=== PATIENT | male | born 1950 | race Caucasian/White ===

== ENCOUNTER 2024-02-21 09:39 | Outpatient (AMB) | payer MEDICARE, SELFPAY ==
--- NOTE | 2024-02-21 09:46 | MHC.PC.OV ---
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 Intake Note: establish care Switch Inspector: Present Accompanied by: Allergies pseudoephedrine [From Sudafed] Allergy (Intermediate, Verified 02/21/24 09:48) high b/p Medication List - Last Reconciled 02/21/24 by Mata Miranda MD amitriptyline 25 mg PO BEDTIME atorvastatin mg PO carbidopa-levodopa 25-100 mg tabs PO carbidopa-levodopa 25-100 mg ER tabs PO cholecalciferol (vitamin D3) 125 mcg PO DAILY donepezil 10 mg PO DAILY escitalopram oxalate 20 mg PO DAILY fluticasone propionate 50 mcg/actuation sprays intranasal lisinopril 20 mg PO DAILY mecobalamin (vitamin B12) mcg PO melatonin 10 mg PO BEDTIME PRN metformin ER 500 mg PO DAILY [id number]-ecaocc [id number] mcg (Centrum Silver Men) 1 tab PO DAILY omega-3 fatty acids 1,000 mg PO DAILY Tobacco use date assessed: 02/21/24 Fall risk assessment: 2 + Falls in past year Last assessed Fall Risk: 02/21/24 Dental Screening Did you have a dental visit in the last 12 months?: Yes Did you have a dental problem in the last 6 months where you did not have access to dental care?: Yes Was dental information given to patient?: 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 ?? Prior PCP:?PCP was in [facility]. Dr Bower, Neuro: at [facility] Last office visit/CPE:? Acute issue(s):? ?? PMHx:? Parkinsonism Neuro at [facility]. Also Neuropathy. , HTN, HLD, Retnal separation L eye. Orthostatic hypotension. h/o WPW, Anxiety, Diabetes SurgHx:? WPW ablation. L eye. SocHx:? Smokes 1/2 ppd, etOH 1-2 dr per day. No drug HPI Comments History of Present Illness Details Documentation assistance for Mata Miranda MD, was provided by Jaguar Barry,? Coal [employer] on 02/21/2024 at 11:30 AM EST. I, Dr. Miranda, have read, observed, and verified documentation. [facility] Medical History (Updated 02/21/24 @ 11:30 by Jaguar Barry) Diabetes Depression Separation, retinal, layers Hypotension Parkinson disease Hypertension Surgical History (Updated 02/21/24 @ 09:55 by Bettina Lara [facility]) Cornea replaced by transplant Family History (Updated 02/21/24 @ 09:58 by Bettina Lara CMA) Father Stroke Mother Pulmonary embolism Sister Diabetes Brother No problems noted. Family/Other No problems noted. Other Substance abuse Social History (Updated 02/21/24 @ 10:03 by Bettina Lara [facility]) Housing: Apartment Patient Tobacco Use Status: Current everyday Tobacco user e-Cigarette/Vaping Use: Never Used service: Yes Current occupational status: retired Current occupational exposures/hazards: No Cognitive needs: No Hearing needs: No Vision needs: Yes Questionnaire PHQ-9 Over the last 2 weeks, how often have you been bothered by any of the following problems? 1. Little interest or pleasure in doing things: several days 2. Feeling down, depressed, or hopeless: several days 3. Trouble falling or staying asleep, or sleeping too much: not at all 4. Feeling tired or having little energy: several days 5. Poor appetite or overeating: not at all 6. Feeling bad about yourself - or that you are a failure or have let yourself or your family down: several days 7. Trouble concentrating on things, such as reading the newspaper or watching television: not at all 8. Moving or speaking so slowly that other people could have noticed. Or the opposite - being so fidgety or restless that you have been moving around a lot more than usual: several days 9. Thoughts that you would be better off or of hurting yourself in some way: not at all Total score: 5 Depression Screening Interpretation: Positive Depression Screening Done: Yes 96084 - PHQ-9 Billing: Yes Source: Developed by Drs. Lalo Marie, Savannah Musa, Jose J Wise and colleagues, with an educational myrna from [employer]. Thrive Questionnaire Date Thrive assessed: 02/21/24 I am a: Patient What is your living situation today?: I have a steady place to live Within the past 12 months, did the food you bought not last and you didn't have the money to get more?: Never true Within the past 12 months, did you worry whether your food would run out before you got money to buy more?: Never true Do you have trouble paying for medicines?: No Do you have trouble getting transportation to medical appointments?: No Do you have trouble paying your heating and electricity bill?: No Do you have trouble taking care of your child, family member or friend?: No Do you have trouble with day-to-day activities such as bathing, preparing meals, shopping, managing finances, etc.?: Yes Are you currently unemployed and looking for a job?: No Are you interested in more education?: No Please select the resources that you would like help with: None Currently or been in a relationship where the following occur: No concerns reported THRIVE Score: 0 AUDIT C Alcohol Use Questionnaire (AUDIT-C) 1. How often do you have a drink containing alcohol?: 4 or more times a week 2. How many drinks containing alcohol do you have on a typical day when you are drinking?: 1 or 2 3. How often do you have six or more drinks on one occasion?: Never Total Score: 4 ROSEANNE-7 AMB Questionnaire ROSEANNE-7 Date ROSEANNE - 7 assessed: 02/21/24 Feeling nervous, anxious, or on edge: 2 = More than half the days Not being able to stop or control worryin = More than half the days Worrying too much about different things: 2 = More than half the days Trouble relaxin = Nearly every day Being so restless that it is hard to sit still: 3 = Nearly every day Becoming easily annoyed or irritable: 3 = Nearly every day Feeling afraid as if something awful might happen: 2 = More than half the days Total ROSEANNE-7 score (0-4 normal; 5-9 mild; 10-14 moderate; 15-21 severe): 17 Source: Developed by Drs. Lalo Marie, Savannah Musa, Jose J Wise and colleagues, with an educational myrna from [employer]. ROSEANNE-7 Assessment Billing ROSEANNE-7 Assessment Tool: ROSEANNE-7 Assessment 74675 Review of Systems Const Denies chills, Denies fatigue, Denies fever(s), Denies headache(s) and Reports weakness ENT Denies dizziness and Denies headache(s) Card Denies chest pain, Denies lightheadedness, Denies dyspnea and Denies other (Palpitations) Resp Denies cough, Denies dyspnea, Denies wheezing and Denies other ( shortness of breath) Musc Denies numbness and Denies tingling Neuro Denies dizziness, Denies headache(s), Denies numbness, Denies tingling, Denies paresthesias, Reports tremor(s) and Reports weakness Psych Reports anxiety and Reports depression Endo Denies fatigue Aller/Immun Denies wheezing Physical exam (Primary Care) Vital Signs: Last Vital Signs Temp 98.6 F 02/21/24 10:12 Pulse 73 02/21/24 10:12 Resp 14 02/21/24 10:12 BP 124/60 02/21/24 10:12 Pulse Ox 96 02/21/24 10:12 Oxygen Delivery Method Room Air 02/21/24 10:12 BMI result Body Mass Index 24.7 Tobacco/Smoking Status: Tobacco use Status Tobacco use date assessed 02/21/24 02/21/24 09:58 Patient Tobacco Use Status Current everyday Tobacco 02/21/24 10:03 e-Cigarette/Vaping Use Never Used 02/21/24 10:03 PHQ-9: PHQ-9 Score PHQ-9: Total score 5 02/21/24 10:15 Depression Screening Interpretation: Positive Thrive Assessment: Date of Thrive Assessment Date Thrive assessed 02/21/24 02/21/24 10:15 Currently or been in a relationship where the following occur: No concerns reported Const General: no acute distress and well developed Nutritional Appearance: well nourished Orientation/consciousness: patient oriented x3 HENMT Head: Yes normocephalic and Yes atraumatic Eyes General: appearance normal, both eyes and all related structures Pupils: Equal, round and reactive pupils present EOM: EOMs intact bilaterally Resp Effort & Inspection: normal respiratory effort Auscultation: clear to auscultation bilaterally Cardio Rate: regular rate Rhythm: regular rhythm Heart sounds: S1 normal heart sound present, S2 normal heart sound present, no gallops, no murmurs and no rubs Neuro General: patient oriented x3 and gait normal Cranial nerves: Yes Equal, round and reactive pupils present Psych Affect: normal affect Coding Level of Care Code New Pt Level 4 (30656) Diagnoses Hypertension I10 Diabetes E11.9 Parkinson disease G20.A1 Anxiety with depression F41.8 Lower extremity weakness R29.898 Hyperlipidemia E78.5 Neuropathy G62.9 Laboratory exam ordered as part of routine general medical examination Z00.00 Smoker F17.200 Additional Codes ROSEANNE-7 Assessment Billing - ROSEANNE-7 Assessment Tool: ROSEANNE-7 Assessment 33542 ([id number]) PHQ-9 - 89005 - PHQ-9 Billing: Yes ([id number]) Assessment & Plan Assessment & Plan (1) Hypertension: Code(s): I10 - Essential (primary) hypertension Category: Medical Plan: Patient?was?taking?lisinopril?but?also?has?issues?with?orthostatic?hypotension He?stopped?his?lisinopril?and?blood?pressures?are?all?under?140/90?except?after?a??freezing?episode??parkinsonism. He?can?hold?off?on?taking?lisinopril?and?will?use?a?strategy?of?checking?blood?pressure.??Will?take?1/2?of?a?lisinopril?10?mg?tablet?(5?mg)?up?to?twice?a?day?for?blood?pressures?greater?than?140/90. Will?continue?to?monitor (2) Diabetes: Code(s): E11.9 - Type 2 diabetes mellitus without complications Category: Medical Plan: A1c?6.1%.??Good?control.??Goal?is?less?than?7.0% Continue?current?medications (3) Parkinson disease: Code(s): G20.A1 - Parkinson's disease without dyskinesia, without mention of fluctuations Category: Medical Plan: Patient?is?on?carbidopa?levodopa Also?on?donepezil Continue?current?medication?regimen?and?follow-up?with?your?neurologist?as?recommended Also?has?an?order?from?his?neurologist?for?physical?therapy?and?I?recommended?this?as?well (4) Anxiety with depression: Code(s): F41.8 - Other specified anxiety disorders Category: Medical Plan: He?is?on?escitalopram?and?amitriptyline Continue?current?medications We?discussed?bupropion?which?could?also?help?with?smoking?cessation?in?we?can?readdress?at?a?subsequent?visit (5) Lower extremity weakness: Code(s): R29.898 - Other symptoms and signs involving the musculoskeletal system Category: Medical Plan: Encouraged?using?a?cane?or?walking?stick He?has?an?order?for?physical?therapy?and?will?start?this?as?soon?as?can (6) Hyperlipidemia: Code(s): E78.5 - Hyperlipidemia, unspecified Category: Medical Plan: He?is?on?a?statin?medication Check?lipids (7) Neuropathy: Code(s): G62.9 - Polyneuropathy, unspecified Category: Medical Plan: Patient?has?lower?extremity?neuropathy?secondary?to?diabetes?and?also?parkinsonism Controlled?diabetes Physical?therapy,, use?cane B12 (8) Laboratory exam ordered as part of routine general medical examination: Code(s): Z00.00 - Encounter for general adult medical examination without abnormal findings Category: Medical Plan: Check?labs (9) Smoker: Code(s): F17.200 - Nicotine dependence, unspecified, uncomplicated Category: Social Hx Plan: Advised?cessation Discussed?bupropion?as?above Check?LDCT Orders: Orders TSH reflex Free T4 Today Z00.00 - Encounter for general adult medical examination without abnormal findings UA and rflx microscopic Today Z00.00 - Encounter for general adult medical examination without abnormal findings Vitamin B12 and Folate Today E53.8 - Deficiency of other specified B group vitamins Comprehensive [place]. Panel Fast Today Z00.00 - Encounter for general adult medical examination without abnormal findings Complete Blood Count Auto Diff Today Z00.00 - Encounter for general adult medical examination without abnormal findings Prostate Specific Antigen Scr Today Z12.5 - Encounter for screening for malignant neoplasm of prostate Microalbumin, Random (w Creat) Today I10 - Essential (primary) hypertension Lipid Panel Today Z00.00 - Encounter for general adult medical examination without abnormal findings Vitamin D 25-OH Total Today E55.9 - Vitamin D deficiency, unspecified CT lung screening Today F17.200 - Nicotine dependence, unspecified, uncomplicated
[2024-02-21 10:12] VITALS: BP 124/60; PULSE 73; RESP 14; TEMP 37; O2SAT 96; BMI 24.7
== END 2024-02-21 11:39 | disposition home or self-care (01) ==
PROVIDERS: PCP Family Medicine; Visit Provider Family Medicine
DX: I10 Essential (primary) hypertension (principal); E11.9 Type 2 diabetes mellitus without complications; G20.A1 Parkinson's disease without dyskinesia, without mention of fluctuations; F41.8 Other specified anxiety disorders; R29.898 Other symptoms and signs involving the musculoskeletal system; E78.5 Hyperlipidemia, unspecified; G62.9 Polyneuropathy, unspecified; Z00.00 Encounter for general adult medical examination without abnormal findings; F17.200 Nicotine dependence, unspecified, uncomplicated

== ENCOUNTER 2024-02-21 11:47 | Outpatient (REF) | payer MEDICARE, SELFPAY ==
[2024-02-21 14:03] LABS: MANUAL DIFF FLAG NO
[2024-02-21 14:10] LABS: Basophils Percent Auto 0.5 % (0-2); Eosinophils Absolute Auto 0.2 X10*3/uL (0.0-0.4); Eosinophils Percent Auto 2.9 % (0-4); Hematocrit 33.5 % (42.0-52.0); Hemoglobin 11.6 g/dl (14.0-18.0); Imm Gran Abs Auto 0.02 X10*3/uL (0.00-0.03); Imm Gran Pct Auto 0.3 % (0.0-0.4); Lymphocytes Absolute Auto 1.8 X10*3/uL (1.2-4.9); Lymphocytes Percent Auto 31.1 % (20-40); Mean Corpuscular HGB Conc 34.6 g/dl (31.0-36.0); Mean Corpuscular Hemoglobin 32.7 pg (27.0-33.0); Mean Corpuscular Volume 94.4 fL (80.0-98.0); Mean Platelet Volume 9.8 fL (9.4-12.4); Monocytes Absolute Auto 0.4 X10*3/uL (0.1-1.2); Monocytes Percent Auto 6.5 % (2-11); Neutrophils Absolute Auto 3.4 x10*3/uL (2.0-8.3); Neutrophils Percent Auto 58.7 % (45-73); Platelet Count 192 X10*3/uL (160-400); Red Blood Count 3.55 X10*6/uL (4.60-5.80); Red Cell Distribution Width 12.9 % (11.0-16.0); White Blood Count 5.8 X10*3/uL (4.8-10.8)
[2024-02-21 14:15] LABS: Appearance Urine Clear; Color Urine Yellow; Glucose Urine UA Negative (Negative); Leukocyte Esterase Urine Negative (Negative); Nitrite Urine Negative (Negative); PH 5.5 (5.0-9.0); Urine Blood Negative (Negative); Urine Ketones Trace mg/dL (Negative); Urine Protein Trace mg/dL (Neg-Trace)
[2024-02-21 14:28] LABS: Alanine Aminotransferase 23 U/L (0-40); Albumin Level 4.7 g/dL (3.5-5.0); Alkaline Phosphatase 114 U/L (39-117); Anion Gap 15 (12-20); Aspartate Amino Transferase 81 U/L (5-37); Bilirubin Total 0.5 mg/dL (0.0-1.0); Blood Urea Nitrogen 18 mg/dL (9-16); Calcium 9.1 mg/dL (8.4-10.2); Carbon Dioxide 25 mmol/L (22-29); Chloride 103 mmol/L (96-108); Cholesterol 187 mg/dL (<200); Estimated Glomerular Filt Rate 59; Glucose Fasting 101 mg/dL (60-99); HDL Cholesterol 66 mg/dL (>40); LDL Cholesterol Calculated 96 mg/dL (<100); Sodium 138 mmol/L (135-145); Total Protein 8.1 g/dL (6.5-8.0); Triglycerides 129 mg/dL (<150)
[2024-02-21 14:33] LABS: Creatinine Urine 68.94 mg/dL; Microalbum/Creatinine Ratio Ur 147.9 ug/mg cr (<30)
[2024-02-21 14:44] LABS: TSH reflex Free T4 2.27 uIU/mL (0.32-4.0); Vitamin D 25-OH Total 96.6 ng/mL (>30)
[2024-02-21 14:56] LABS: Folate 14.3 ng/mL (> or = 4.0); Prostate Specific Antigen Scr 0.85 ng/mL (<0.05-4.0); Vitamin B12 > 2000 pg/mL (200-900)
== END 2024-02-21 11:48 | disposition home or self-care (01) ==
LOC: HO.WFDLDS 11:47
PROVIDERS: Visit Provider Family Medicine
DX: Z00.00 Encounter for general adult medical examination without abnormal findings (principal); Z12.5 Encounter for screening for malignant neoplasm of prostate; E53.8 Deficiency of other specified B group vitamins; I10 Essential (primary) hypertension; E55.9 Vitamin D deficiency, unspecified
CPT/HCPCS: 36415; 80053; 80061; 81003; 82043; 82306; 82570; 82607; 82746; 84153; 84443; 85025; 96127; 99202

== ENCOUNTER 2024-02-27 15:45 | Outpatient (AMB) | payer MEDICARE, SELFPAY ==
--- NOTE | 2024-02-27 16:34 | A.OFFPC_ITS ---
Vital Signs 02/27/24 16:40 Height 5 ft 8 in Weight 164 lb 2 oz BMI 25.0 BP 130/60 Blood Pressure Location Lt brachial Position Sitting Respiration 16 Pulse 69 Pulse Source Pulse Oximeter Temp 98.6 F Temp Source Oral Pulse Oximetry (%) 98 Oxygen Delivery Method Room Air Intake Visit Reasons: PE Intake Note: PE Allergies pseudoephedrine [From Sudafed] Allergy (Intermediate, Verified 02/27/24 16:34) high b/p Tobacco use date assessed: 02/27/24 Fall risk assessment: 2 + Falls in past year Last assessed Fall Risk: 02/27/24 Dental Screening Dental Screen Date: 02/27/24 Did you have a dental visit in the last 12 months?: Yes Did you have a dental problem in the last 6 months where you did not have access to dental care?: No Was dental information given to patient?: Patient has dentist HPI PE HPI Details 73 y/o male presents for an extended exa m with f/u labs and health maintenance. Labs drawn 02/21/24. Reviewed labs with pt. Mild anemia. Elevated AST of 81. Notes minimal EtOH use. Tries to stay away from tylenol. Triglycerides 129. TC 187. LDL 96. HDL 66. Fasting glucose of 101. Microalb/Creat ratio 147.9. Last A1c 6.1%. Blood pressure today 130/60, 69p. Prescribed lisinopril 20mg daily. [facility] Medical History (Updated 02/27/24 @ 17:25 by Jaguar Barry) Diabetes Depression Separation, retinal, layers Hypotension Parkinson disease Hypertension Surgical History (Updated 02/21/24 @ 09:55 by Bettina Lara CMA) Cornea replaced by transplant Family History (Updated 02/21/24 @ 09:58 by Bettina Lara CMA) Father Stroke Mother Pulmonary embolism Sister Diabetes Brother No problems noted. Family/Other No problems noted. Other Substance abuse Social History (Updated 02/21/24 @ 10:03 by Bettina Lara CMA) Housing: Apartment Patient Tobacco Use Status: Current everyday Tobacco user e-Cigarette/Vaping Use: Never Used service: Yes Current occupational status: retired Current occupational exposures/hazards: No Cognitive needs: No Hearing needs: No Vision needs: Yes Questionnaire PHQ-9 Over the last 2 weeks, how often have you been bothered by any of the following problems? 1. Little interest or pleasure in doing things: several days 2. Feeling down, depressed, or hopeless: several days 3. Trouble falling or staying asleep, or sleeping too much: not at all 4. Feeling tired or having little energy: several days 5. Poor appetite or overeating: several days 6. Feeling bad about yourself - or that you are a failure or have let yourself or your family down: not at all 7. Trouble concentrating on things, such as reading the newspaper or watching television: several days 8. Moving or speaking so slowly that other people could have noticed. Or the opposite - being so fidgety or restless that you have been moving around a lot more than usual: several days 9. Thoughts that you would be better off or of hurting yourself in some way: not at all Total score: 6 Depression Screening Interpretation: Positive Depression Screening Done: Yes 11001 - PHQ-9 Billing: Yes Source: Developed by Drs. Lalo Marie, Savannah Musa, Jose J Wise and colleagues, with an educational myrna from [employer]. Thrive Questionnaire Date Thrive assessed: 02/27/24 I am a: Patient What is your living situation today?: I have a steady place to live Within the past 12 months, did the food you bought not last and you didn't have the money to get more?: Never true Within the past 12 months, did you worry whether your food would run out before you got money to buy more?: Never true Do you have trouble paying for medicines?: No Do you have trouble getting transportation to medical appointments?: No Do you have trouble paying your heating and electricity bill?: No Do you have trouble taking care of your child, family member or friend?: No Do you have trouble with day-to-day activities such as bathing, preparing meals, shopping, managing finances, etc.?: Yes Are you currently unemployed and looking for a job?: No Are you interested in more education?: No Please select the resources that you would like help with: None Currently or been in a relationship where the following occur: No concerns reported THRIVE Score: 0 ROSEANNE-7 AMB Questionnaire ROSEANNE-7 Date ROSEANNE - 7 assessed: 01/08/25 Feeling nervous, anxious, or on edge: 2 = More than half the days Not being able to stop or control worryin = Several days Worrying too much about different things: 1 = Several days Trouble relaxin = Several days Being so restless that it is hard to sit still: 0 = Not at all Becoming easily annoyed or irritable: 1 = Several days Feeling afraid as if something awful might happen: 0 = Not at all Total ROSEANNE-7 score (0-4 normal; 5-9 mild; 10-14 moderate; 15-21 severe): 6 Source: Developed by Drs. Lalo Marie, Savannah Musa, Jose J Wise and colleagues, with an educational myrna from [employer]. ROSEANNE-7 Assessment Billing ROSEANNE-7 Assessment Tool: ROSEANNE-7 Assessment 86886 Review of Systems Const Denies chills, Denies fatigue, Denies fever(s), Denies headache(s) and Denies weakness Eyes Denies change in vision ENT Denies dizziness, Denies headache(s), Denies hearing loss, Denies nasal congestion, Denies sinus pain, Denies sinus pressure and Denies sore throat Card Denies chest pain, Denies lightheadedness, Denies dyspnea and Denies other (palpitations) Resp Denies cough, Denies dyspnea and Denies wheezing GI Denies abdominal pain, Denies melena, Denies hematochezia, Denies change in bowel habits, Denies dyspepsia and Denies nausea Denies hematuria and Denies dysuria Musc Denies abnormal gait, Denies myalgias, Denies arthralgias, Denies numbness and Denies tingling Skin/Breast Denies rash, Denies unusual bruising and Denies wounds Neuro Denies abnormal gait, Denies dizziness, Denies headache(s), Denies memory loss, Denies numbness, Denies Sensory deficit (Neuro), Denies tingling and Denies weakness Psych Denies anxiety, Denies depression and Denies memory loss Endo Denies cold intolerance, Denies fatigue, Denies heat intolerance, Denies polydipsia and Denies polyuria Alexis/Lymph Denies easy bleeding and Denies easy bruising Aller/Immun Denies wheezing Physical exam (Primary Care) Vital Signs: Last Vital Signs Temp 98.6 F 02/27/24 16:40 Pulse 69 02/27/24 16:40 Resp 16 02/27/24 16:40 BP 130/60 02/27/24 16:40 Pulse Ox 98 02/27/24 16:40 Oxygen Delivery Method Room Air 02/27/24 16:40 BMI result Body Mass Index 25.0 Tobacco/Smoking Status: Tobacco use Status Tobacco use date assessed 02/27/24 02/27/24 16:43 Patient Tobacco Use Status Current everyday Tobacco 02/27/24 16:43 e-Cigarette/Vaping Use Never Used 02/27/24 16:43 PHQ-9: PHQ-9 Score PHQ-9: Total score 6 02/27/24 16:52 Depression Screening Interpretation: Positive Thrive Assessment: Date of Thrive Assessment Date Thrive assessed 02/27/24 02/27/24 16:43 Currently or been in a relationship where the following occur: No concerns reported Const General: no acute distress, well developed, alert and awake Nutritional Appearance: well nourished Orientation/consciousness: patient oriented x3 HENMT Head: Yes normocephalic and Yes atraumatic Ears: hearing grossly normal bilaterally and TM's normal bilaterally General nose exam: Normal external nose present and Normal nares present Mouth: Normal oral and palatal mucosa present and moist mucous membranes Teeth and gingiva: dentition normal Throat: Yes posterior oropharynx normal Eyes General: appearance normal, both eyes and all related structures Pupils: Equal, round and reactive pupils present and Pupil accommodation reflex normal EOM: EOMs intact bilaterally Neck Neck: Yes normal visual inspection, Yes no lymphadenopathy and Yes trachea midline Thyroid: Thyroid normal Carotids: no bruits Lymphatic: no lymphadenopathy noted Chest Chest palpation & inspection: normal inspection of the chest Resp Effort & Inspection: normal respiratory effort Auscultation: clear to auscultation bilaterally Cardio Rate: regular rate Rhythm: regular rhythm Heart sounds: S1 normal heart sound present, S2 normal heart sound present, no gallops, Murmur heart sound present (4/6 systolic murmur over aortic and mitral region) and no rubs Bruits: no abdominal aortic bruits and no carotid bruits GI Palpation (GI): No Abdominal aortic bruit present, Soft to palpation, nontender, No hepatosplenomegaly present and No Rebound tenderness present Auscultation: normal bowel sounds General: Yes no CVA tenderness Back/Spine/Pelvis Back: no CVA tenderness Cervical Spine: cervical ROM normal and No Cervical spine tenderness Thoracic/Lumbar Spine: thoraco-lumbar ROM normal, No pain with thoraco-lumbar ROM, No thoracic spinal tenderness and No lumbar spinal tenderness Skin Lesions: no lesions Rashes: no rashes Trauma: no lacerations or abrasions Wounds: no wounds Nails: normal Neuro General: patient oriented x3 Cranial nerves: Yes Equal, round and reactive pupils present Cognition (Neuro): normal cognition Gait exam (Neuro): Normal gait present Motor exam (neuro): 5/5 motor strength present throughout Sensory Exam: No Sensory deficit (Neuro) Deep tendon reflexes (DTR's): Right patellar reflex intensity grade: 2+ and Left patellar reflex intensity grade: 2+ Extrem General: Yes normal to inspection and No edema Psych Appearance: grossly normal Affect: normal affect Attitude: cooperative Thought process: Normal thought process present Coding Level of Care Code Est Pt Level 5 (09831) Diagnoses Hypertension I10 Diabetes E11.9 Elevated AST (SGOT) R74.01 Heart murmur R01.1 Mild anemia D64.9 Screening for colon cancer Z12.11 Screening for prostate cancer Z12.5 Orthostatic hypotension I95.1 Autonomic neuropathy G90.9 Adult general medical examination Z00.00 Additional Codes ROSEANNE-7 Assessment Billing - ROSEANNE-7 Assessment Tool: ROSEANNE-7 Assessment 24295 ([id number]) PHQ-9 - 25938 - PHQ-9 Billing: Yes ([id number]) Assessment & Plan Assessment & Plan (1) Hypertension: Code(s): I10 - Essential (primary) hypertension Category: Medical Plan: Blood?pressure?appears?controlled Patient?has?orthostatic?hypotension?secondary?to?autonomic?dysfunction/neuropath y He?is?checking?his?blood?pressures?and?taking?lisinopril?when?it?is?high. Continue?current?strategy (2) Diabetes: Code(s): E11.9 - Type 2 diabetes mellitus without complications Category: Medical Plan: A1c?showed?good?control?at?last?check Continue?metformin?as?prescribed (3) Elevated AST (SGOT): Code(s): R74.01 - Elevation of levels of liver transaminase levels Category: Medical Plan: AST?is?elevated Encouraged?good?hydration Will?recheck?with?next?blood?draw?and?review?at?next?visit (4) Heart murmur: Code(s): R01.1 - Cardiac murmur, unspecified Category: Medical Plan: 05/25?systolic?murmur?over?aortic?region?and?also?heard?at?mitral?region Likely?transmitted?to?bilateral?carotids He?says?he?had?an?echocardiogram?couple?of?years?ago. I?am?awaiting?prior?records. We?will?follow-up?on?this?and?discuss?rechecking?an?echocardiogram May?also?consider?carotid?duplex? 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 He?will?let?me?know?if?he?needs?a?referral (7) Screening for prostate cancer: Code(s): Z12.5 - Encounter for screening for malignant neoplasm of prostate Category: Medical Plan: PSA?is?within?normal?limits Continue?annual?screening (8) Orthostatic hypotension: Code(s): I95.1 - Orthostatic hypotension Category: Medical Plan: Orthostatic?hypotension?primarily?due?to?autonomic?dysfunction?from?neuropathy. However,?patient?also?has?a?loud?systolic?murmur?over?aortic?region?and?has?not? had?an?echo?in?a?couple?of?years. Murmur?also?seems?to?be?transmitted?to?carotids?but?we?may?consider?echocardiogr am?and?or?carotid?ultrasound?after?reviewing?his?records?when?available. (9) Autonomic neuropathy: Code(s): G90.9 - Disorder of the autonomic nervous system, unspecified Category: Medical Plan: Secondary?to?Parkinson's Follow-up?with?Neurology?as?recommended (10) Adult general medical examination: Code(s): Z00.00 - Encounter for general adult medical examination without abnormal findings Category: Medical Plan: 73-year-old?male?presents?for?an?extended?exam Encouraged?healthy?diet?with?active?lifestyle?and?plenty?of?exercise Orders: Orders Comprehensive [place]. Panel Fast Today R74.01 - Elevation of levels of liver transaminase levels, Z00.00 - Encounter for general adult medical examination without abnormal findings Microalbumin, Random (w Creat) Today I10 - Essential (primary) hypertension Hemoglobin A1c Today E11.9 - Type 2 diabetes mellitus without complications, R73.01 - Impaired fasting glucose Complete Blood Count Auto Diff Today D64.9 - Anemia, unspecified, Z00.00 - Encounter for general adult medical examination without abnormal findings
[2024-02-27 16:40] VITALS: BP 130/60; PULSE 69; RESP 16; TEMP 37; O2SAT 98; BMI 25.0
== END 2024-02-27 17:05 | disposition home or self-care (01) ==
PROVIDERS: PCP Family Medicine; Visit Provider Family Medicine
DX: I10 Essential (primary) hypertension (principal); E11.9 Type 2 diabetes mellitus without complications; R74.01 Elevation of levels of liver transaminase levels; R01.1 Cardiac murmur, unspecified; D64.9 Anemia, unspecified; Z12.11 Encounter for screening for malignant neoplasm of colon; Z12.5 Encounter for screening for malignant neoplasm of prostate; I95.1 Orthostatic hypotension; G90.9 Disorder of the autonomic nervous system, unspecified

== ENCOUNTER → 2024-02-27 15:45 | Outpatient (BNVA) | payer MEDICARE, SELFPAY | PROVIDERS: PCP Family Medicine; Visit Provider Family Medicine | DX: Z00.00 Encounter for general adult medical examination without abnormal findings (principal); E11.9 Type 2 diabetes mellitus without complications; D64.9 Anemia, unspecified; I10 Essential (primary) hypertension; R74.01 Elevation of levels of liver transaminase levels; R01.1 Cardiac murmur, unspecified; I95.1 Orthostatic hypotension; G90.9 Disorder of the autonomic nervous system, unspecified | CPT/HCPCS: 96127; 99212 ==

== ENCOUNTER 2024-05-05 11:39 | Outpatient (AMB) | payer MEDICARE, SELFPAY ==
--- NOTE | 2024-05-05 11:58 | A.OFFPC_ITS ---
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 Allergies pseudoephedrine [From Sudafed] Allergy (Intermediate, Verified 05/05/24 11:58) high b/p Medication List - Last Reconciled 05/05/24 by Mata Miranda MD amitriptyline 25 mg PO BEDTIME 30 days atorvastatin 20 mg PO DAILY 90 days carbidopa-levodopa 25-100 mg tabs PO carbidopa-levodopa 25-100 mg ER tabs PO cholecalciferol (vitamin D3) 125 mcg PO DAILY donepezil 10 mg PO DAILY escitalopram oxalate 20 mg PO DAILY 90 days fluticasone propionate 50 mcg/actuation sprays intranasal lisinopril 10 mg PO BID 90 days mecobalamin (vitamin B12) mcg PO melatonin 10 mg PO BEDTIME PRN metformin ER 500 mg PO DAILY 90 days [id number] mcg (Centrum Silver Men) 1 tab PO DAILY omega-3 fatty acids 1,000 mg PO DAILY Tobacco use date assessed: 02/27/24 Dental Screening Dental Screen Date: 02/27/24 HPI f/u liver enzymes, labs HPI Details 73 y/o male presents to f/u labs includi ng elevated liver enzymes, mild anemia, and also f/u diabetes. Prior A1c 6.1%. Pt had significant murmur which seemed to be transmitted to carotids as well. No recent labs to review. Blood pressure today 150/80, 80p. He is on lisinopril 20mg daily. Notes episodes of orthostatic hypotension. Has a low dose CT scan scheduled on the . [facility] Medical History (Updated 05/05/24 @ 12:17 by Mata Miranda MD) Nicotine dependence, cigarettes, uncomplicated Diabetes Depression Separation, retinal, layers Hypotension Parkinson disease Hypertension Surgical History (Updated 05/05/24 @ 12:28 by Mata Miranda MD) Cornea replaced by transplant Family History (Updated 02/21/24 @ 09:58 by YANN Paul) Father Stroke Mother Pulmonary embolism Sister Diabetes Brother No problems noted. Family/Other No problems noted. Other Substance abuse Social History (Updated 02/21/24 @ 10:03 by YANN Paul) Housing: Apartment Patient Tobacco Use Status: Current everyday Tobacco user e-Cigarette/Vaping Use: Never Used service: Yes Current occupational status: retired Current occupational exposures/hazards: No Cognitive needs: No Hearing needs: No Vision needs: Yes Questionnaire Thrive Questionnaire Date Thrive assessed: 02/21/24 I am a: Patient What is your living situation today?: I have a steady place to live Within the past 12 months, did the food you bought not last and you didn't have the money to get more?: Never true Within the past 12 months, did you worry whether your food would run out before you got money to buy more?: Never true Do you have trouble paying for medicines?: No Do you have trouble getting transportation to medical appointments?: No Do you have trouble paying your heating and electricity bill?: No Do you have trouble taking care of your child, family member or friend?: No Do you have trouble with day-to-day activities such as bathing, preparing meals, shopping, managing finances, etc.?: Yes Are you currently unemployed and looking for a job?: No Are you interested in more education?: No Please select the resources that you would like help with: None Currently or been in a relationship where the following occur: No concerns reported THRIVE Score: 0 ROSEANNE-7 AMB Questionnaire ROSEANNE-7 Date ROSEANNE - 7 assessed: 02/27/24 Source: Developed by Drs. Lalo Marie, Savannah Musa, Jose J Wise and colleagues, with an educational myrna from [employer]. Review of Systems Const Denies chills, Denies fatigue, Denies fever(s), Denies headache(s) and Denies weakness ENT Denies dizziness and Denies headache(s) Card Denies dyspnea Resp Denies cough, Denies dyspnea, Denies wheezing and Denies other (shortness of breath) Musc Denies numbness and Denies tingling Neuro Denies dizziness, Denies headache(s), Denies numbness, Denies tingling and Denies weakness Psych Denies anxiety and Denies depression Endo Denies fatigue Aller/Immun Denies wheezing Physical exam (Primary Care) Vital Signs: Last Vital Signs Temp 98.3 F 05/05/24 11:59 Pulse 80 05/05/24 11:59 Resp 14 05/05/24 11:59 BP 150/80 H 05/05/24 11:59 Pulse Ox 95 05/05/24 11:59 Oxygen Delivery Method Room Air 05/05/24 11:59 BMI result Body Mass Index 24.8 Tobacco/Smoking Status: Tobacco use Status Tobacco use date assessed 02/27/24 05/05/24 12:03 Patient Tobacco Use Status Current everyday Tobacco 05/05/24 12:03 e-Cigarette/Vaping Use Never Used 05/05/24 12:03 Thrive Assessment: Date of Thrive Assessment Date Thrive assessed 02/21/24 05/05/24 12:03 Currently or been in a relationship where the following occur: No concerns reported Const General: well developed; No acute distress Nutritional Appearance: well nourished Orientation/consciousness: patient oriented x3 HENMT Head: Yes normocephalic and Yes atraumatic Eyes General: appearance normal, both eyes and all related structures Pupils: Equal, round and reactive pupils present EOM: EOMs intact bilaterally Resp Effort & Inspection: normal respiratory effort Auscultation: clear to auscultation bilaterally Cardio Rate: regular rate Rhythm: regular rhythm Heart sounds: Murmur heart sound present Neuro General: patient oriented x3 and gait normal Cranial nerves: Yes Equal, round and reactive pupils present Psych Affect: normal affect Coding Level of Care Code Est Pt Level 3 (58591) Diagnoses Hypertension I10 Orthostatic hypotension I95.1 Diabetes E11.9 Elevated AST (SGOT) R74.01 Mild anemia D64.9 Heart murmur R01.1 Assessment & Plan Assessment & Plan (1) Hypertension: Code(s): I10 - Essential (primary) hypertension Category: Medical Plan: Patient?has hypertension?with?episodes?of?orthostatic?hypotension, perhaps?secondary?to?autonomic?dysfunction?from?parkinsonism. He?says?that?when?he?takes?lis inopril?20mg?or?even?breaking?this?and?have?not?taking?10?mg, he?becomes?hypotensive?in?so he?has hesitant?to?take?this?medication. Will?change?to?lisinopril?10?mg. He?can?break?these?in?half?and?laureano e?5?mg?b.i.d.?and?titrate?upwards?as?tolerated. EKG?shows: ?Normal?sinus?rhythm,?normal?axis, no?delta?wave, no?hypertrophy, no?ST-T-wave?changes. (2) Orthostatic hypotension: Code(s): I95.1 - Orthostatic hypotension Category: Medical Plan: As?above (3) Diabetes: Code(s): E11.9 - Type 2 diabetes mellitus without complications Category: Medical Plan: Patient?has?not?gotten?his?labs?drawn?but?is?fasting?and?will?do?so?today. (4) Elevated AST (SGOT): Code(s): R74.01 - Elevation of levels of liver transaminase levels Category: Medical Plan: Getting?labs?drawn?today (5) Mild anemia: Code(s): D64.9 - Anemia, unspecified Category: Medical Plan: Getting?labs?drawn?today (6) Heart murmur: Code(s): R01.1 - Cardiac murmur, unspecified Category: Medical Plan: Prominent?heart?murmur?heard?best?over?mitral?and?apex?regions. Patient?has?several?cardiac diagnoses?including?history?of?SVT?and?WPW (No delta wave seen on EKG today).??History?of?ablation. Referring?him?to?Cardiology Orders: Orders AMB EKG-In Office Today I45.6 - Pre-excitation syndrome Referrals Cardiology Referral I45.6 - Pre-excitation syndrome, I47.10 - Supraventricular tachycardia, unspecified, Z98.890 - Other specified postprocedural states Medications: Changed From lisinopril 20 mg PO DAILY 90 days 90 tabs 4RF To lisinopril 10 mg PO BID 90 days 180 tabs 4RF
[2024-05-05 11:59] VITALS: BP 150/80; PULSE 80; RESP 14; TEMP 36.8; O2SAT 95; BMI 24.8
[2024-05-05 12:22] VITALS: BP 140/70
== END 2024-05-05 12:47 | disposition home or self-care (01) ==
LOC: HO.HMCFM 11:40
PROVIDERS: PCP Family Medicine; Visit Provider Family Medicine
DX: I10 Essential (primary) hypertension (principal); I95.1 Orthostatic hypotension; E11.9 Type 2 diabetes mellitus without complications; R74.01 Elevation of levels of liver transaminase levels; D64.9 Anemia, unspecified; R01.1 Cardiac murmur, unspecified

== ENCOUNTER → 2024-05-05 11:39 | Outpatient (BNVA) | payer MEDICARE, SELFPAY | PROVIDERS: PCP Family Medicine; Visit Provider Family Medicine | DX: I10 Essential (primary) hypertension (principal); E11.9 Type 2 diabetes mellitus without complications; I95.1 Orthostatic hypotension; R01.1 Cardiac murmur, unspecified; D64.9 Anemia, unspecified; R74.01 Elevation of levels of liver transaminase levels | CPT/HCPCS: 99212 ==

== ENCOUNTER 2024-05-07 10:12 | Outpatient (REF) | payer MEDICARE, OTHER, SELFPAY ==
[2024-05-07 11:23] LABS: MANUAL DIFF FLAG NO
[2024-05-07 11:33] LABS: Basophils Percent Auto 0.4 % (0-2); Eosinophils Absolute Auto 0.2 X10*3/uL (0.0-0.4); Eosinophils Percent Auto 4.1 % (0-4); Hematocrit 35.1 % (42.0-52.0); Hemoglobin 11.9 g/dl (14.0-18.0); Imm Gran Abs Auto 0.01 X10*3/uL (0.00-0.03); Imm Gran Pct Auto 0.2 % (0.0-0.4); Lymphocytes Absolute Auto 2.1 X10*3/uL (1.2-4.9); Lymphocytes Percent Auto 42.8 % (20-40); Mean Corpuscular HGB Conc 33.9 g/dl (31.0-36.0); Mean Corpuscular Hemoglobin 32.4 pg (27.0-33.0); Mean Corpuscular Volume 95.6 fL (80.0-98.0); Monocytes Absolute Auto 0.3 X10*3/uL (0.1-1.2); Monocytes Percent Auto 6.9 % (2-11); Neutrophils Absolute Auto 2.2 x10*3/uL (2.0-8.3); Neutrophils Percent Auto 45.6 % (45-73); Platelet Count 168 X10*3/uL (160-400); Red Blood Count 3.67 X10*6/uL (4.60-5.80); Red Cell Distribution Width 12.8 % (11.0-16.0); White Blood Count 4.9 X10*3/uL (4.8-10.8)
[2024-05-07 11:42] LABS: Estimated Average Glucose 111 mg/dL; Hemoglobin A1c % 5.5 % (<6.0); Total Hemoglobin (HGBA1C) 3198.6163 umol/L
[2024-05-07 12:07] LABS: Creatinine Urine 77.38 mg/dL; Microalbum/Creatinine Ratio Ur 87.8 ug/mg cr (<30)
[2024-05-07 12:13] LABS: Alanine Aminotransferase 19 U/L (0-40); Albumin Level 4.3 g/dL (3.5-5.0); Alkaline Phosphatase 109 U/L (39-117); Anion Gap 11 (12-20); Aspartate Amino Transferase 94 U/L (5-37); Bilirubin Total 0.4 mg/dL (0.0-1.0); Blood Urea Nitrogen 15 mg/dL (9-16); Calcium 9.2 mg/dL (8.4-10.2); Carbon Dioxide 28 mmol/L (22-29); Chloride 105 mmol/L (96-108); Estimated Glomerular Filt Rate 53; Glucose Fasting 115 mg/dL (60-99); Potassium 4.4 mmol/L (3.3-5.1); Sodium 140 mmol/L (135-145); Total Protein 7.6 g/dL (6.5-8.0)
== END 2024-05-07 10:13 | disposition home or self-care (01) ==
LOC: HO.WFDLDS 10:12
PROVIDERS: Visit Provider Family Medicine
DX: Z00.00 Encounter for general adult medical examination without abnormal findings (principal); I10 Essential (primary) hypertension; R73.01 Impaired fasting glucose; E11.9 Type 2 diabetes mellitus without complications; D64.9 Anemia, unspecified; R74.01 Elevation of levels of liver transaminase levels
CPT/HCPCS: 36415; 80053; 82043; 82570; 83036; 85025

== ENCOUNTER 2024-05-09 10:21 | Outpatient (AMB) | payer MEDICARE, OTHER, SELFPAY ==
--- NOTE | 2024-05-09 07:46 | A.OFFVIS_ITS ---
Intake Visit Reasons: Current Smoker Allergies pseudoephedrine [From Sudafed] Allergy (Intermediate, Verified 05/05/24 11:58) high b/p HPI HPI Current Smoker: Details: Initial visit for this 73yo smoker with a 50PYH. Patient started smoking at age 21 for 52 years at 1ppd. Currently down to 1/4ppd. . Denies marijuana use. Denies second hand smoke exposure. 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 . Denies known family history of lung cancer. Denies personal history of cancers. Denies chest CT in last year. . Denies recent travel outside the [place]. Denies recent respiratory illness or recent hospitalization for respiratory issues. Denies testing positive for COVID. Admits receiving COVID Vaccine. . Denies fever, chills, new/worsening cough, hemoptysis, hoarseness or dysphagia. Denies significant chest pain, significant dyspnea or unintentional weight loss. Patient Lung Cancer Screening Questionnaire reviewed with patient by provider. . Shared Decision Making Completed. Patient meets criteria. Discussed in detail with patient, the risk vs benefit of LDCT screening. Patient consents to proceed with scan. Discussed smoking cessation. [facility] Medical History (Updated 05/09/24 @ 10:38 by Manisha Bledsoe PA-C) Parkinson disease History of hepatitis C WPW (Alagz-Dlgwmsrfo-Jliww syndrome) PSVT (paroxysmal supraventricular tachycardia) Orthostatic hypotension Hypertension Hyperlipidemia Diabetes Nicotine dependence, cigarettes, uncomplicated Depression History of retinal detachment Surgical History (Updated 05/05/24 @ 13:53 by Manisha Bledsoe PA-C) History of cardiac cath History of radiofrequency ablation (RFA) procedure for cardiac arrhythmia History of detached retina repair History of colonoscopy History of esophagogastroduodenoscopy (EGD) Family History (Updated 02/21/24 @ 09:58 by YANN Paul) Father Stroke Mother Pulmonary embolism Sister Diabetes Brother No problems noted. Family/Other No problems noted. Other Substance abuse Social History (Updated 05/09/24 @ 10:31 by Manisha Bledsoe PA-C) Housing: Apartment Patient Tobacco Use Status: Current everyday Tobacco user Cigarettes Per Day: 5 Years Smoked: (onset 21, 1ppd x 52yrs, now 1/4ppd - 50pyh) e-Cigarette/Vaping Use: Never Used service: Yes Current occupational status: retired Current occupational exposures/hazards: No Cognitive needs: No Hearing needs: No Vision needs: Yes Assessment & Plan Assessment & Plan (1) Nicotine dependence, cigarettes, uncomplicated: Comment: (onset 21, 1ppd x 52yrs, now 1/4ppd - 50pyh) Code(s): F17.210 - Nicotine dependence, cigarettes, uncomplicated Category: Medical Plan: - SDM visit completed today in office. - Patient meets criteria for LDCT for lung cancer screening purposes and is asymptomatic. - Smoking cessation counseling offered. Patients can always call [phone]. - Will arrange for a LDCT scan of the chest for screening purposes at [facility]. - Risks, benefits, and alternatives were discussed in detail and the patient agrees to proceed. - Risks discussed include but are not limited to: radiation exposure, anxiety during testing and while awaiting results, false negatives, false positives and possibility of additional intervention such as further imaging or surgical procedures for benign disease. - Benefits are obviously detection of lung cancer at an early stage which can lead to improved outcomes. - Discussed the importance of screening program compliance with adherence to yearly LDCT scan as scheduled - or sooner interval scans for personalized screening regimen. - Discussed follow up plan. Our office will send a letter discussing results and if needed set up phone call and office visit based on CT findings. - Patient educated on results categorization and the management decisions for suspicious findings potentially found on the screening LDCT scan. Any patient with a Lung RADS score of 3 or 4 will be reviewed by a multidisciplinary team at [facility] to form a plan of action in regards to scan findings. - If further work up is warranted for a suspicious lung finding this will be followed by the Lung Cancer Screening program in conjunction with the Thoracic Surgery Department at [facility]. - A copy of the office note and LDCT will be sent to the patient's PCP - as well as documentation on any associated further plans of care. - Incidental findings on LDCT are the PCP's responsibility. These findings are indicated with an S finding on the LDCT Assessment. A note discussing the findings will be sent to the PCP who is then responsible for further management. - All questions answered.? Plan OF NOTE FOR PCP: The USPTF recommends men aged 65-75 who have ever smoked have a one-time abdominal US to screen for AAA - recommend patient to discuss with PCP if not done prior Coding Level of Care Code Lung Cancer Screening G0296 Diagnoses Nicotine dependence, cigarettes, uncomplicated F17.210
== END 2024-05-09 10:57 | disposition home or self-care (01) ==
LOC: HO.HPS 10:22
PROVIDERS: PCP Family Medicine; Referring Provider Family Medicine; Visit Provider Physician Assistant Medical
DX: F17.210 Nicotine dependence, cigarettes, uncomplicated (principal)
CPT/HCPCS: G0296

== ENCOUNTER 2024-05-09 10:39 | Outpatient (REF) | payer MEDICARE, OTHER, SELFPAY ==
--- NOTE | ~2024-05-09 | CT_ITS ---
CLINICAL HISTORY: F17.210 - Nicotine dependence, cigarettes, uncomplicated CT lung cancer screening Technique: Axial CT images of the chest using low-dose technique. Effective radiation dose: DLP 47.3 mGy. Cm, CTDIvol 1.27 mGy Referring provider counseled the patient on shared decision-making for LDCT screening. Additional counseling was provided on smoking cessation. Comparison: None Findings: Lung nodules RUL: None RML: None RLL: 2 mm nodule axial image 91 CHAPARRO: None Lingula: None LLL: None COPD: Mild centrilobular emphysema. Pleural spaces: Normal. Coronary artery calcifications: Moderate. Limited upper abdomen: Volume redistribution of the liver reflecting cirrhosis. Calcified granulomas of the spleen. Other: Mild asymmetric gynecomastia suspected [id number]-scep-right. Minimal discoid atelectasis within the lingula. Impression: LungRADS 2 - Benign Appearance: Continue annual screening with low dose Chest CT in 12 months. ##L2# ACR LungRADS Categories Category 1: Normal; continue annual screening Category 2: Benign appearance or behavior, continue annual screening Category 3: Probably benign, [address] recommended Category 4A: Suspicious, [address] recommended; may consider PET/CT Category 4B: Suspicious, Additional diagnostics and/or tissue sampling recommended Category 4X: Suspicious, Additional diagnostics and/or tissue sampling Category 0: Recalls (incomplete screen due to Incomplete coverage, Noise, Respiratory motion, Expiration, Obscured by acute abnormality) This document has been electronically signed by: Ty Grace MD on 05/12/2024 10:11:09
== END 2024-05-09 10:40 | disposition home or self-care (01) ==
LOC: HO.CT 10:39
PROVIDERS: PCP Family Medicine; Visit Provider Physician Assistant Medical
DX: Z12.2 Encounter for screening for malignant neoplasm of respiratory organs (principal); F17.210 Nicotine dependence, cigarettes, uncomplicated
CPT/HCPCS: 71271; G0296

== ENCOUNTER → 2024-05-09 10:41 | Outpatient (BNV) | payer MEDICARE, OTHER, SELFPAY | PROVIDERS: PCP Family Medicine; Visit Provider Radiology Diagnostic Radiology | DX: F17.210 Nicotine dependence, cigarettes, uncomplicated (principal) | CPT/HCPCS: 71271 ==

== ENCOUNTER 2024-09-02 09:48 | Outpatient (AMB) | payer MEDICARE, OTHER, SELFPAY ==
[2024-09-02 09:57] VITALS: BP 120/62; PULSE 82; BMI 24.1
--- NOTE | 2024-09-02 09:57 | MHC.OFFVIS ---
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 Intake Note: New patient SVT ablation in 2008 at [facility] feeling good [place] Management Specialist Required: No Allergies pseudoephedrine (From Sudafed) Allergy (Intermediate, Verified 05/05/24 11:58) high b/p Medication List - Last Reconciled 09/02/24 by Anibal Toscano MD amitriptyline 25 mg PO BEDTIME 30 days atorvastatin 20 mg PO DAILY 90 days carbidopa-levodopa 25-100 mg 1 tab PO TID carbidopa-levodopa 25-100 mg ER tabs PO cholecalciferol (vitamin D3) 125 mcg PO DAILY donepezil 10 mg PO DAILY escitalopram oxalate 20 mg PO DAILY 90 days fluticasone propionate 50 mcg/actuation sprays intranasal lisinopril 10 mg PO ONCE mecobalamin (vitamin B12) mcg PO melatonin 10 mg PO BEDTIME PRN metformin ER 500 mg PO DAILY 90 days [id number]-[id number] [id number] mcg (Centrum Silver Men) 1 tab PO DAILY omega-3 fatty acids 1,000 mg PO DAILY HPI Comments Details: Thank you for referring Donnie in cardiovascular management for his prior cardiac issues. He is a pleasant 73-year-old male with prior history of SVT diagnose in 1975 and subsequently in 2008 he had more frequent episodes and was diagnose with WPW syndrome and underwent an ablation in [facility] in [place]. From his description appears like he had a left-sided pathway although this is unclear I do not have records. However since the ablation in his done he has had no recurrent episodes. Since about 4 years ago he has been diagnose with Parkinson's disease and has developed significant orthostatic hypotension related to autonomic dysfunction. He has autonomic dysfunction and that has led to significant labile blood pressure. He also has history of hypertension and was high dose of lisinopril 20 mg b.i.d. but after combined management his lisinopril has been taper to 10 mg which she takes at nighttime. This has led to reasonable control on his orthostatic symptoms and good control of his blood pressure. He said usually his blood pressure run in his systolic 120s. He has not had significant episodes of syncope orthostatic hypotension in his good functionality. He is still continues to have issues with peripheral neuropathy. He has history of diabetes. No history of known vascular or cardiac disease. He is currently taking statins at 20 mg daily. Denies any prolonged palpitation irregular heartbeat. Denies any exertional chest pain or shortness of breath. No orthopnea, PND, leg edema. He said about 3 or 4 years ago he had an echocardiogram done in [place], do not have a copy of the same but was told that he had some form of LV dysfunction although this is unclear. He has never had any congestive heart failure syndrome. [facility] Medical History PSVT (paroxysmal supraventricular tachycardia) WPW (Wkiww-Sryoqwzph-Szuyq syndrome) Parkinson disease History of hepatitis C Orthostatic hypotension Hypertension Hyperlipidemia Diabetes Nicotine dependence, cigarettes, uncomplicated Depression History of retinal detachment Surgical History History of cardiac cath History of radiofrequency ablation (RFA) procedure for cardiac arrhythmia History of detached retina repair History of colonoscopy History of esophagogastroduodenoscopy (EGD) Family History Father Stroke Mother Pulmonary embolism Sister Diabetes Brother No problems noted. Family/Other No problems noted. Other Substance abuse Social History Housing: Apartment Patient Tobacco Use Status: Current everyday Tobacco user Cigarettes Per Day: 5 Years Smoked: (onset 21, 1ppd x 52yrs, now 1/4ppd - 50pyh) e-Cigarette/Vaping Use: Never Used service: Yes Current occupational status: retired Current occupational exposures/hazards: No Cognitive needs: No Hearing needs: No Vision needs: Yes Review of Systems Const Denies chills, Denies daytime sleepiness, Denies fatigue, Denies fever(s), Denies frequent falls, Denies poor appetite, Denies snoring, Denies stops breathing during sleep, Denies weakness, Denies weight gain and Denies weight loss Eyes Denies loss of vision ENT Denies dizziness and Denies hearing loss Card Denies chest pain, Denies claudication, Denies leg edema, Denies lightheadedness, Denies palpitations, Denies dyspnea, Denies dyspnea on exertion and Denies orthopnea Resp Denies cough, Denies excessive phlegm production, Denies dyspnea, Denies dyspnea on exertion, Denies snoring and Denies wheezing GI Denies abdominal pain, Denies hematochezia, Denies change in bowel habits, Denies nausea and Denies vomiting Denies dysuria and Denies urinary frequency Musc Denies arthralgias, Denies muscle weakness, Denies numbness and Denies other (frequent falls) Skin/Breast Denies nail changes and Denies rash Neuro Denies Abnormal speech present, Denies dizziness, Denies frequent falls, Denies loss of vision, Denies memory loss, Denies numbness and Denies weakness Psych Denies depression and Denies memory loss Endo Denies fatigue and Denies palpitations Alexis/Lymph Reports easy bruising and Reports other (anemia) Aller/Immun Denies wheezing Physical Exam Vital Signs: Last Vital Signs Pulse 82 09/02/24 09:57 BP 120/62 09/02/24 09:57 BMI result Body Mass Index 24.1 Const General: cooperative, comfortable, no acute distress, alert, awake and Physically active Nutritional Appearance: thin Orientation/consciousness: patient oriented x3 Limitations: no limitations HEENT Head: Yes normocephalic and Yes atraumatic Neck Neck: Yes trachea midline, Yes supple and Yes no JVD Resp Effort & Inspection: normal respiratory effort Auscultation: clear to auscultation bilaterally Cardio Jugular venous distension: no JVD Palpation: normal PMI Rate: regular rate Rhythm: regular rhythm Heart sounds: S1 normal heart sound present, S2 normal heart sound present, no click, no gallops, no murmurs and no rubs GI Auscultation: normal bowel sounds Skin General skin exam: no rashes or lesions noted Neuro General: patient oriented x3, no focal motor deficits and other (Generalized tremor) Speech: No Abnormal speech present Extrem General: Yes no clubbing, cyanosis or edema Psych Appearance: grossly normal and other Office Procedures EKG Details: EKG shows normal sinus rhythm normal EKG 35610-[id number], Complete Assessment & Plan Assessment & Plan (1) Orthostatic hypotension: Code(s): I95.1 - Orthostatic hypotension Category: Medical Plan: Patient with a difficult syndrome due to autonomic neuropathy most likely central autonomic neuropathy related to his Parkinson's disease with symptoms of orthostatic lightheadedness although these are not well controlled on current therapy. We discussed management and difficulty in management of patients with hypertension at baseline with associated autonomic dysfunction and orthostatic hypotension. Understands them well. Strongly suggest him to increase his water intake to 64-72 oz. Avoid salt intake. I agree with switching lisinopril to nighttime to counter supine hypertension which can be seen in patient with autonomic dysfunction. Advised her to continue to monitor his blood pressure at home. We had a long discussion about orthostatic precautions. He understands them well. We discussed about sleeping in his semi reclining position to also mitigate some of the symptoms associated with orthostatic hypotension. He is doing all the stuff. I would avoid any pharmacotherapy for orthostatic hypotension at this point time as it can lead to supine hypertension. He understands. (2) History of radiofrequency ablation (RFA) procedure for cardiac arrhythmia: Code(s): Z98.890 - Other specified postprocedural states Category: Surgical Plan: Prior history of ablation for WPW syndrome. Will obtain records. He has not had any recurrent symptoms since then. No therapy required. He has question history of prior cardiomyopathy. Will update an echocardiogram. Will obtain old echocardiogram for comparison as well. Will follow up in the clinic in 1 year's time, sooner p.r.n.. Thank you for allowing me to partake in his care Orders: Orders CA echo transthoracic complete Today Anibal Toscano MD I95.1 - Orthostatic hypotension Medications: Changed From lisinopril 10 mg PO BID 90 days 180 tabs 4RF To lisinopril 10 mg PO ONCE Mata Miranda MD Coding Level of Care Code New Pt Level 4 (83831) Complex EM visit Add On G2211 Diagnoses Orthostatic hypotension I95.1 History of radiofrequency ablation (RFA) procedure for cardiac arrhythmia Z98.890 CPT Codes EKG - CPT: 81584-[id number], Complete ([id number])
--- OUTSIDE RECORDS SUMMARY | 2024-09-02 10:32 | XMS_ITS | Clinical Summary ---
Author Organization [facility] Address [address] [place] [address] Care Team Providers Care Specialty Department Supervisor Name Role Phone Mata Miranda MD Primary Care Provider [phone] Allergies Active Allergy Reactions Criticality Noted Date Comments Pseudoephedrine-Guaifen esin Tachycardia 07/09/2024 Other reaction(s): Hypertensive disorder, systemic arterial (disorder) Other reaction(s): Elevated blood pressure Medications melatonin 10 mg tablet,chewable Chew and swallow by mouth. Active mv-min/folic/K1 /lycopen/lutein (CENTRUM SILVER MEN ORAL) Take by mouth. 1 tablet 4 times a week Sun and Sat Active amitriptyline (ELAVIL) 25 mg tablet SMARTSI Tablet(s) By Mouth Every Night Active atorvastatin (LIPITOR) 20 mg tablet 0.5 tablet by mouth once daily. 5 Active carbidopa-levod opa ER/CR (SINEMET ER/CR) 25-100 mg tablet SMARTSI.5 Tablet(s) By Mouth Daily 5 Active carbidopa-levod opa (SINEMET) 25-100 mg per tablet SMARTSI Tablet(s) By Mouth 3 Times Daily 5 Active cholecalciferol , vitamin D3, 5,000 unit tablet Take by mouth. 1 tablet 3 times a week on Sun Active donepeziL (ARICEPT) 10 mg tablet Take 10 mg by mouth daily. 4 Active escitalopram (LEXAPRO) 20 mg tablet SMARTSI Tablet(s) By Mouth Daily 5 Active fluticasone propionate (FLONASE) 50 mcg/actuation nasal spray Administer 1 spray into affected nostril(s). Active lisinopriL (PRINIVIL,ZESTR IL) 10 mg tablet 0.5 tablet twice a day. 5 Active metFORMIN ER (GLUCOPHAGE XR) 500 mg tablet 5 Active omega-3 fatty acids 1,000 mg capsule Take 2 g by mouth daily. Active Active Problems No known active problems Encounters Date Type Department Care Team Description 07/09/2024 1:45 PM EDT Office Visit [facility] [address] [place] [address] Brinda Hays MD Parkinson's disease without dyskinesia, with fluctuating manifestations (HCC) (Primary Dx); Disorder of autonomic nervous system due to Parkinson disease (HCC); Impaired mobility from Last 3 Months Family History Medical History Relation Name Comments Alcohol abuse Brother Cirrhosis Brother Heart failure Father Myocardial Infarction Father Stroke Father Myocardial Infarction Maternal Grandfather Dementia Maternal Grandmother Pulmonary embolism Mother Dementia Paternal Grandmother Diabetes type II Sister 1 Myocardial Infarction Sister 2 Relation Name Status Comments Brother Father Maternal Grandfather Maternal Grandmother Mother Paternal Grandfather Paternal Grandmother Sister 1 Sister 2 Social History Tobacco Use Types Packs/Day Years Used Date Smoking Tobacco: Former Cigarettes Smokeless Tobacco: Never Tobacco Cessation:Counseling Given: Not Answered Alcohol Use Standard Drinks/Week Comments Yes 0 (1 standard drink = 0.6 oz pur e alcohol) 6-8 ounces of Vodka per week Sex and Gender Information Value Date Recorded Sex Assigned at Male 12/27/2023 4:12 PM EST Legal Sex Male 11:55 AM EDT Gender Identity Male 12/27/2023 4:12 PM EST Sexual Orientation Choose not to disclose 2023 4:12 PM EST Last Filed Vital Signs Vital Sign Reading Time Taken Comments Blood Pressure 95/64 07/09/2024 2:00 PM EDT Pulse 87 07/09/2024 2:00 PM EDT Temperature 36.2 C (97.2 F) 07/09/2024 1:43 PM EDT Respiratory Rate 18 07/09/2024 1:43 PM EDT Oxygen Saturation - - Inhaled Oxygen Concentration - - Weight 74.8 kg (165 lb) 07/09/2024 1:43 PM EDT Height - - Body Mass Index - - Plan of Treatment Upcoming Encounters Date Type Department Care Team (Alicia st Contact Info) Description 11/12/2024 2:45 PM EDT Office Visit [facility] [address] [place] [address] Pablo Everett MD [address] [place] [address] Health Maintenance Due Date Last Done Comments Cologuard 1950 Colon Cancer Screening 1950 Colonoscopy 1950 FOBT / Fit Test 1950 Hepatitis C Screening 1950 Sigmoidoscopy 1950 Medicare AWV 12/01/1951 DTaP,Tdap,and Td Vaccines (1 - Tdap) 1972 CT Lung Cancer Screening (Baseline) 2000 Pneumococcal Vaccine: 50+ Years (1 of 1 - PCV) 001 Zoster Vaccines (1 of 2) 2000 Hepatitis B Vaccines (1 of 3 - Risk 3-dose series) 01/2011 RSV Vaccine (60+ years old a nd patients) (1 - Risk 60-74 years 1-dose series) 2010 Abdominal Aortic Aneurysm (AAA) Screening 12/01/2015 COVID-19 Vaccine ( - season) 2023 Alcohol/Substance Use Screening 02/20/2024 Depression Screening and Follow-Up 02/20/2024 Health Care Proxy Review 02/20/2024 Social Drivers of Health Annual Screening 02/20/2024 Influenza Vaccine (#1) 2024 Fall Risk Screening 07/09/2025 07/09/2024 Tobacco Screening 02/19/2042 07/21/2024 Insurance MEDICARE [facility] Care Teams Specialty Department Supervisor Relationship Specialty Start Date End Date Mata Miranda MD [address] [place] [phone] PCP - General Family Medicine 07/09/24
== END 2024-09-02 10:47 | disposition home or self-care (01) ==
LOC: HO.HCS 09:49
PROVIDERS: PCP Family Medicine; Visit Provider Internal Medicine Cardiovascular Disease
DX: I95.1 Orthostatic hypotension (principal); Z98.890 Other specified postprocedural states
CPT/HCPCS: 93010; 99204; G2211

== ENCOUNTER → 2024-09-02 09:48 | Outpatient (BNVA) | payer MEDICARE, OTHER, SELFPAY | PROVIDERS: PCP Family Medicine; Visit Provider Internal Medicine Cardiovascular Disease | DX: I95.1 Orthostatic hypotension (principal); Z98.890 Other specified postprocedural states; Z79.84 Long term (current) use of oral hypoglycemic drugs; Z79.899 Other long term (current) drug therapy | CPT/HCPCS: 93005; 99202 ==

== ENCOUNTER → 2024-10-08 10:51 | Outpatient (REF) | payer MEDICARE, OTHER, SELFPAY ==
--- NOTE | 2024-10-08 10:55 | CA_ITS ---
Transthoracic Echocardiogram Patient (Last, First, Middle): Donnie May D Gender: Male Date of : 1950 Age: 73 Procedure Date: 10/08/2024 Procedure Type: Transthoracic Echocardiogram Location: OP Height: 172.72 cm Weight: 71.67 kg BSA: 1.85 m2 Heart Rate: bpm BP: 120 / 62 mmHg Early Childhood Specialist: NIMA Referring MD: Anibal Toscano MD Imaging Technologist: Anibal Toscano MD Symptoms: I95.1 - Orthostatic hypotension Study Quality: Adequate ECG Rhythm: Sinus Conclusions: - 1. Normal LV ejection fraction of 60 65% with impaired relaxation filling pattern 2. Mild aortic stenosis 3. Normal RV systolic pressure 4. No gross pericardial effusion Findings Left Ventricle Normal left ventricular size, thickness, and systolic function. The visually estimated ejection fraction is between 60-65%. Spectral Doppler is indicative of an impaired relaxation filling pattern. E/E prime ratio is between 8 and 15 consistent with indeterminate filling pressures. Right Ventricle Normal right ventricular cavity size and systolic function. Atria The left atrium is likely dilated. There is no evidence of interatrial shunt. The right atrium is normal in size. Aortic Valve There is mild calcification of the aortic valve. There is mild thickening of the aortic valve. There is mild aortic valve stenosis. There is no aortic valve regurgitation. Mitral Valve There is mild anterior and posterior mitral leaflet thickening. There is trace mitral valve regurgitation. There is no mitral valve stenosis. Pulmonic Valve The pulmonic valve was not well visualized. Tricuspid Valve Likely normal tricuspid valve structure and function. There is trace tricuspid valve regurgitation. The right ventricular systolic pressure is normal. The right ventricular systolic pressure is 29 mmHg. Normal right atrial pressure. There is no evidence of pulmonary hypertension. Great Vessels The pulmonary artery was not well visualized. There is no dilatation of the ascending aorta measuring 3.40 cm. Venous The inferior vena cava is normal in size and collapses greater than 50% with inspiration. Pericardium/Pleural There is no evidence of pericardial effusion. Prior Study Comparison No prior study available for comparison. Measurements 2D Linear Measurements IVSd: 1.10 0.6-0.9/0.6-1.0 cm LVIDd: 4.47 3.9-5.3/4.2-5.9 cm LVIDd Index: 2.42 2.4-3.2/2.2-3.1 cm/m2 LVIDs: 3.20 2.0-3.6 cm LVPWd: 1.00 0.7-1.1 cm LA Diam: 3.40 2.7-3.8/3.0-4.0 cm LAIDs Index: 1.84 1.5-2.3 cm/m2 LV Mass: 201.65 67-162/88-224 g LV Mass Index: 109.00 43-95/49-115 g/m2 LVOT Diam: 2.00 3.0+(-)1.3 cm 2D Systolic Function EF 4C: 63.80 >55% EF 2C: 68.90 >55% EF BiP: 65.50 >55% Mitral Valve MV Pk E: 0.93 MV PK A: 0.89 MV Decel Time: 310.00 E/A: 1.00 E'Lateral: 8.70 E'Medial: 7.18 E/E' Med: 13.00 E/E' Lat: 10.70 PHT: 91.00 MVA PHT: 2.42 Decel [place]: 3.00 Aortic Valve AoV Pk Nilay: 1.99 AoV Mn Nilay: 1.41 AoV VTI: 0.43 AoV Pk Grad: 16.00 Aov Mn Grad: 9.00 YONI Cont.VTI: 1.82 LVOT LVOT Pk Nilay: 1.19 LVOT Mn Nilay: 0.75 LVOT VTI: 0.25 LVOT Pk Grad: 6.00 LVOT Mn Grad: 3.00 LVOT Diam: 2.00 LVOT Area: 3.14 Diastolic Function MV Pk E: 0.93 MV Pk A: 0.89 E/A: 1.00 E'Medial: 7.18 E/E' Med: 13.00 E' Laterial: 8.70 E/E' Lat: 10.70 Right Ventricle TAPSE (mm): 24.00 TVS' Nilay: 13.60 Tricuspid Valve TR Pk Nilay: 2.55 TR Pk Grad: 26.00 RA Press: 3.00 RVSP: 29.00 Great Vessels Aorta Sinus of Valsalva: 3.67 2.0-3.5 cm Ao Asc: 3.40 2.1-3.4 cm Ao Arch: 3.00 Updated in Other Vendor System with Status of Final Anibal Toscano MD electronically signed on 10/08/2024 3:25:50 PM with status of Final
--- OUTSIDE RECORDS SUMMARY | 2024-10-08 12:12 | XMS_ITS | Clinical Summary ---
Author Organization [facility] Address [address] [place] [address] Care Team Providers Care Culinary Chef Name Role Phone Mata Miranda MD Primary Care Provider [phone] Allergies Active Allergy Reactions Criticality Noted Date [...] Description 07/09/2024 1:45 PM EDT Office Visit [facility] [address] [place] [address] Brinda Hays MD Parkinson's disease without dyskinesia, [...] Description 11/12/2024 2:45 PM EDT Office Visit [facility] [address] [place] [address] Pablo Everett MD [address] [place] [address] Health Maintenance Due Date Last Done Comments [...] 07/09/2024 Tobacco Screening 02/19/2042 07/21/2024 Insurance MEDICARE [facility] Care Teams Culinary Chef Relationship Specialty Start Date End Date Mata Miranda MD [address] [place] [id number] PCP - General Family Medicine 07/09/24
--- OUTSIDE RECORDS SUMMARY | 2024-10-08 12:12 | XMS_ITS | Clinical Summary ---
Author Organization [facility] Address [facility] [place] [address] Care Team Providers Care Game Protector Name Role Phone Mata Miranda MD Primary Care Provider Allergies Active Allergy Reactions Criticality Noted Date Comments Pseudoephedrine-Guaifene sin Other reaction(s): Hypertensive disorder, systemic arterial (disorder) Other reaction(s): Elevated blood pressure Medications melatonin 10 mg Capsule Take by mouth nightly as needed. Active atorvastatin (Lipitor) 10 mg Tablet Take 5 mg by mouth every morning. 0 Active metFORMIN XR (Glucophage XR) 500 mg Tablet Sustained Release 24 hr Take 500 mg by mouth daily. 0 Active lisinopriL (Zestril) 20 mg tablet Take 20 mg by mouth every morning. 0 Active b complex vitamins Capsule Take 1 capsule by mouth daily. Active amitriptyline (Elavil) 25 mg Tablet Take 25 mg by mouth nightly. Active fluticasone propionate (Flonase) 50 mcg/actuation [place], Suspension 1 spray by Each Nare route daily as needed. Active cholecalciferol, Vitamin D3, (Vitamin D3) 125 mcg (5,000 unit) tablet Take by mouth. Active escitalopram (Lexapro) 10 mg tablet Take 10 mg by mouth daily. 3 Active multivitamin Capsule Take 1 capsule by mouth daily. 3 Active fish oil-omega-3 fatty acids (Fish Oil) 1,000 mg capsule Take 2 g by mouth daily. Active carbidopa-levodo pa (Sinemet) 25-100 mg tablet Pt taking 2 tabs 3 times daily 540 tablet 3 5 Active carbidopa-levodo pa CR (Sinemet CR) 25-100 mg ER tablet Take 1.5 tablets by mouth nightly. 135 tablet 3 5 Active opicapone (Ongentys) 25 mg capsuleIndicatio ns:Parkinson's disease without dyskinesia or fluctuating manifestations,A bnormality of gait and mobility Take 2 capsules by mouth every evening. 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 History of genotype 1a hepatitis C. SVR achieved following 12 weeks of daily Epclusa. 2. Previously attempted 3 times per week interferon and ribavirin in 2000; treatment discontinued due to cytopenias. 3. 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 We reviewed alcohol abstinence, low sodium, high protein diet, and screening for HCC which he is at higher risk for due to his cirrhosis. Plan: EGD/Colonoscopy with Dr. Cabezas Hemogram, CMP, PT-INR, AFP, Ammonia level Ultrasound of the liver for HCC screening Follow up in 6 months, sooner as clinically indicated Assessment & Plan (04/01/2018 11:27 AM EST): The patient would like to treat cirrhosis conservatively. He declines an upper endoscopy for surveillance of esophageal varices. He was on a beta-melia but stated it made him feel heavy and he would consider taking it if needed but preferred not to. He denies any abdominal fluid retention or ankle retention. He does not want to set up a 6 month ultrasound at this time- he would prefer to get the results of the current ultrasound first. Plan: LFT's, PT, Liver Fibrosis panel Ultrasound for liver surveillance Former smoker 10/25/2016 Overview (10/25/2016): quit in 2000 Insomnia 10/25/2016 Palpitations 10/25/2016 Paroxysmal supraventricular tachycardia 10/26/19 17 Iicec-Xzakhjbhb-Qanns (WPW) pattern 10/25/2016 Hypertension 01/28/2016 Resolved Problems Problem Noted Date Diagnosed Date Resolved Date Chronic hepatitis C virus infection 04/01/2021 06/15/2021 Overview (04/01/2021): 2016resolved following treatment at [facility] Chronic viral hepatitis C 04/10/2016 Overview (03/26/2017): 1. Genotype 1a hepatitis C - treatment experienced with 3 times weekly interferon and ribavirin in 2000. Treatment discontinued due to cytopenias. 2. SVR achieved September 27, 2016 following a 12 week treatment with Epclusa. 3. Liver fibrosis panel (January 2016): F4 4. Hepatitis B status: Immune Encounters Date Type Department Care Team Description 10/06/2024 [place] [address] Shanta Palmer DO 09/15/2024 [place] [address] Cece Eckert MA Prior Authorization (opicapone (Ongentys) 25 mg capsule [) 09/12/2024 [place] [phone] Shanta Palmer DO Other (Med issue) 07/17/2024 [place] [phone] Cece Eckert MA Prior Authorization (opicapone (Ongentys) 50 mg capsule ) 07/17/2024 [place] [phone] Shanta Palmer DO from Last 3 Months Family History Medical History Relation Comments Alcohol Use Disorder Brother Cerebrovascular Accident Father Hypertension Father Chronic Obstructive Pulmonary Disease Mother Diabetes Sister 1 Heart Disease Sister 1 Alzheimer Disease Sister 2 Diabetes Sister 2 Relation Status Comments Brother (Age 68) Father (Age 76) Mother (Age 82) Sister 1 (Age 74) Sister 2 (Age 75) Social History Tobacco Use Types Packs/Day Years Used Date Smoking Tobacco: Some Days Cigarettes 0.5 10 Smokeless Tobacco: Never Tobacco Cessation:Ready to Q uit: Not Asked; Counseling Given: Not Answered Alcohol Use Standard Drinks/Week Comments Yes 0 (1 standard drink = 0.6 oz pur e alcohol) a couple times of week Sex and Gender Information Value Date Recorded Sex Assigned at Male 03/15/2021 10:50 AM EST Legal Sex Male 8:51 AM EST Gender Identity Not on file Sexual Orientation Not on file Last Filed Vital Signs Vital Sign Reading Time Taken Comments Blood Pressure 105/66 07/01/2024 8:08 AM EDT Pulse 89 07/01/2024 8:08 AM EDT Temperature 36.3 C (97.3 F) 07/30/2023 11:44 AM EDT Respiratory Rate 16 09/15/2019 12:30 PM EDT Oxygen Saturation 98% 02/05/2024 12:53 PM EST Inhaled Oxygen Concentration - - Weight 71.7 kg (158 lb) 07/01/2024 8:08 AM EDT Height 172.7 cm (5' 8 ) 07/01/2024 8:08 AM EDT Body Mass Index 24.02 07/01/2024 8:08 AM EDT Plan of Treatment Upcoming Encounters Date Type Department Care Team (Late st Contact Info) Description 03/24/2025 9:00 AM EST [place] [address] Shanta Palmer, [facility] [place] [address] Health Maintenance Due Date Last Done Comments CT Colonography 1950 FIT DNA 1950 FIT 1950 Sigmoidoscopy 1950 DM Hemoglobin A1c 1960 DM Urine Microalbumin yearly 1960 Hepatitis A vaccine 0-18 yrs and Risk (1 of 2 - Risk 2-dose series) 1969 Pneumoccocal Vaccine: 50+ (1 of 2 - PCV) 1969 Tetanus/Diphtheria/Pertussis Vaccines (1 - Tdap) 1969 Zoster vaccine (1 of 2) 2000 Advance Directive 2005 Hepatitis B vaccine (0-59 yr s) and Risk (1) 2010 RSV Vaccine (1 - Risk 60-74 years 1-dose series) 2010 AAA Screen 12/01/2015 Colonoscopy 05/16/2020 05/16/2017, 05/16/2017 Colorectal Cancer Screening 05/16/2020 DM Ophthalmology Exam 10/29/2020 10/30/2019 , 09/25/2019, 09/16/2019, Additional history exists DM Creatinine yearly 06/15/2022 06/15/2021, 05/08/2016, 01/28/2016 Covid-19 Vaccine (7 2023-2 5 season) 2023 01/03/2023, 12/16/2021, 07/07/2021, Additional history exists Influenza (Flu) vaccine (1 o f 1 - Influenza standard series) 10/20/2024 Sigmoidoscopy (10 year) with FIT yearly 05/17/2027 05/16/2017, 05/16/2017 Medical Devices Implanted Type Area Meters Superintendent Device Identifier Shelf Expiration Date Model / Serial / Lot Iol,[id number],23. 0 ([id number]) (Autoreq) - [id number] Implanted:Qty: 1 on 09/15/2019 by Nelson George MD at [facility] IMPLANTS Left: Eye NOVARTIS - NOVARTIS 04/17/2020 [id number] / [id number] / Procedures Procedure Name Priority Date/Time Associated Diagnosis Comments COMPREHENSIVE METABOLIC PANEL Routine 06/15/2021 10:55 AM EDT Hepatic cirrhosis, unspecified hepatic cirrhosis type, unspecified whether ascites present COLONOSCOPY Routine 05/16/2017 10:38 AM EDT from Last 3 Months or Most Recently Relevant to Health Maintenance Results * (ABNORMAL) Comprehensive metabolic panel (non-fasting) (06/15/2021 10:55 AM EDT) Glucose 127 65 - 199 mg/dL [facility] Comment:Diabetes: >=200 mg/d L plus symptoms Blood Urea Nitrogen 14 10 - 20 mg/dL [facility] Creatinine 1.14 0.80 - 1.50 mg/dL [facility] Sodium 136 135 - 145 mmol/L [facility] Potassium 5.1(H) 3.5 - 5.0 mmol/L [facility] Comment: Please note: Patients with WBC >100,000 may have falsely elevated Potassium levels. For accurate Potassium quantification in these patients send serum separator tube (gold top) for subsequent determinations. Contact the Clinical Chemistry Laboratory if there are any questions. Chloride 100 98 - 107 mmol/L [facility] Carbon Dioxide 24 22 - 31 mmol/L [facility] Anion Gap 12 5 - 15 mmol/L [facility] Calcium 9.9 8.5 - 10.5 mg/dL [facility] Protein, Total 7.8 6.1 - 8.0 g/dL [facility] Albumin 4.8 3.2 - 5.2 g/dL [facility] Aspartate Aminotransferase 30 0 - 39 unit/L [facility] Alanine Aminotransferase 12 0 - 55 unit/L [facility] Alkaline Phosphatase 61 40 - 130 unit/L [facility] Bilirubin, Total 0.4 0.2 - 1.3 mg/dL [facility] Est Glomerular Filtration Rate 65 >=60 mL/min/1. 73 m [facility] Comment: This patient s estimated glomerular filtration rate (eGFR) is between 65 mL/min/1.73 m2 (patients with less muscle mass per kg body weight) and 75 mL/min/1.73 m2 (patients with more muscle mass per kg body weight) as determined by the CKD-EPI equation. Assessment of eGFR is not appropriate when creatinine concentrations are rapidly changing. For clinical decisions where creatinine clearance will affect therapy, a 24-hour urine creatinine clearance may be advised. Assignment of CKD stage 1 - 5 for patients with an eGFR near the transition point between stages may be based on clinical assessment of muscle mass and symptoms in addition to eGFR. Blood 06/15/2021 10:5 5 AM EDT 06/15/2021 10:55 AM EDT Narrative Resulting Agency Comment Spec In Lab us Alicja William APRN CHEMISTRY ORDERABLES Final Result [facility] [address] [place] [address] * COLONOSCOPY (05/16/2017 10:38 AM EDT) COLONOSCOPY Patient Name: Donnie May Procedure Date: 05/16/2017 10:38 AM Attending MD: Sebas Cabezas MD Date of : 1950 Order #: [id number] Age: 66 Instrument Name: [id number] Procedure: Colonoscopy Indications: Screening for colorectal malignant neoplasm Providers: Sebas Cabezas MD, Monika Martin, Supervisor Cured Meats Referring MD: Medicines: Midazolam 4 mg IV, Fentanyl 100 micrograms IV Moderate Sedation: Moderate (conscious) sedation was administered by the endoscopy nurse and supervised by the endoscopist. The following parameters were monitored: oxygen saturation, heart rate, blood pressure, and response to care. Total physician intraservice time was 32 minutes. Complications: No immediate complications. Procedure: Pre-Anesthesia Assessment: - Prior to the procedure, a History and Physical was performed, and patient medications and allergies were reviewed. The patient's tolerance of previous anesthesia was also reviewed. The risks and benefits of the procedure and the sedation options and risks were discussed with the patient. All questions were answered, and informed consent was obtained. Prior Anticoagulants: The patient has taken no previous anticoagulant or antiplatelet agents. ASA Grade Assessment: II - A patient with mild systemic disease. After reviewing the risks and benefits, the patient was deemed in satisfactory condition to undergo the procedure. The procedure, indications, benefits, risks and alternatives were explained to the patient. Specifically discussed were potential complications including, but not limited to, bleeding, perforation, infection, missing a cancer, and adverse medication reactions. The patient was placed in the left lateral decubitus position, and a digital rectal exam was performed. The Colonoscope was inserted in the anus and under direct visualization, advanced to the cecum, identified by appendiceal orifice and ileocecal valve. Careful inspection was made as the colonoscope was withdrawn. The colonoscopy was performed without difficulty. The patient tolerated the procedure well. The quality of the bowel preparation was excellent. Scope Withdrawal Time: 0 hours 20 minutes 44 seconds Findings: The perianal and digital rectal examinations were normal. Many small-mouthed diverticula were found in the sigmoid colon. Two sessile polyps were found in the ileocecal valve. The polyps were 1 to 2 mm in size. These polyps were removed with a cold snare. Resection and retrieval were complete. Two sessile polyps were found in the proximal ascending colon. The polyps were 1 to 2 mm in size. These polyps were removed with a cold snare. Resection and retrieval were complete. A 3 mm polyp was found in the transverse colon. The polyp was sessile. The polyp was removed with a cold snare. Resection and retrieval were complete. Four sessile polyps were found in the recto-sigmoid colon. The polyps were 2 to 3 mm in size. These polyps were removed with a cold snare. Resection and retrieval were complete. Two sessile polyps were found in the recto-sigmoid colon. The polyps were diminutive in size. These polyps were removed with a cold biopsy forceps. Resection and retrieval were complete. Non-bleeding internal hemorrhoids were found during retroflexion. The hemorrhoids were small. No other significant abnormalities were identified in a careful examination of the remainder of the colon. Impression: - Diverticulosis in the sigmoid colon. - Two 1 to 2 mm polyps at the ileocecal valve, removed with a cold snare. Resected and retrieved. - Two 1 to 2 mm polyps in the proximal ascending colon, removed with a cold snare. Resected and retrieved. - One 3 mm polyp in the transverse colon, removed with a cold snare. Resected and retrieved. - Four 2 to 3 mm polyps at the recto-sigmoid colon, removed with a cold snare. Resected and retrieved. - Two diminutive polyps at the recto-sigmoid colon, removed with a cold biopsy forceps. Resected and retrieved. - Non-bleeding internal hemorrhoids. Recommendation: - Discharge patient to home. - Resume previous diet. - Continue present medications. - Await pathology results. - Repeat colonoscopy for surveillance based on pathology results. - Return to primary care physician as needed for routine healthcare. Procedure Code(s): --- Professional --- 63726, Colonoscopy, flexible; with removal of tumor(s), polyp(s), or other lesion(s) by snare technique 74539, 59, Colonoscopy, flexible; with biopsy, single or multiple 38500, 59, Moderate sedation services provided by the same physician or other qualified health pet caretaker performing the diagnostic or therapeutic service that the sedation supports, requiring the presence of an independent trained observer to assist in the monitoring of the patient's level of consciousness and physiological status; initial 15 minutes of intraservice time, patient age 5 years or older [address], Moderate sedation services; each additional 15 minutes intraservice time --- Technical --- 26426, Colonoscopy, flexible; with removal of tumor(s), polyp(s), or other lesion(s) by snare technique 66408, 59, Colonoscopy, flexible; with biopsy, single or multiple 56440, 59, Moderate sedation services provided by the same physician or other qualified health pet caretaker performing the diagnostic or therapeutic service that the sedation supports, requiring the presence of an independent trained observer to assist in the monitoring of the patient's level of consciousness and physiological status; initial 15 minutes of intraservice time, patient age 5 years or older [address], Moderate sedation services; each additional 15 minutes intraservice time Diagnosis Code(s): --- Professional --- Z12.11, Encounter for screening for malignant neoplasm of colon K64.8, Other hemorrhoids D12.0, Benign neoplasm of cecum D12.2, Benign neoplasm of ascending colon D12.7, Benign neoplasm of rectosigmoid junction D12.3, Benign neoplasm of transverse colon (hepatic flexure or splenic flexure) K57.30, Diverticulosis of large intestine without perforation or abscess without bleeding --- Technical --- Z12.11, Encounter for screening for malignant neoplasm of colon K64.8, Other hemorrhoids D12.0, Benign neoplasm of cecum D12.2, Benign neoplasm of ascending colon D12.7, Benign neoplasm of rectosigmoid junction D12.3, Benign neoplasm of transverse colon (hepatic flexure or splenic flexure) K57.30, Diverticulosis of large intestine without perforation or abscess without bleeding CPT copyright 2016 [employer]. All rights reserved. The codes documented in this report are preliminary and upon cloth doubling machine operator review may be revised to meet current compliance requirements. Sebas Cabezas MD _ Sebas Cabezas MD 05/16/2017 11:39:19 AM This report has been signed electronically. Number of Addenda: 0 PROVATION 05/16/2017 10:3 8 AM EDT us Sebas Cabezas MD GENERAL SURGICAL ORDERABLES F inal Result PROVATION from Last 3 Months or Most Recently Relevant to Health Maintenance Insurance [address] [place] [id number] MEDICARE [place] [id number] [facility] Advance Directives * Full Code (Latest Code Status on File) Date Activated Date Inactivated Comments 06/19/2019 1:27 PM 06/19/2019 6:50 PM Question Answer Comments Does patient have capacity to make decision: Yes Care Teams Game Protector Relationship Specialty Start Date End Date Mata Miranda MD [address] [facility] [place] [address] PCP - General Family Medicine 07/01/24
== END ==
LOC: HO.CARD 10:51
PROVIDERS: PCP Family Medicine; Visit Provider Internal Medicine Cardiovascular Disease
DX: I95.1 Orthostatic hypotension (principal)
CPT/HCPCS: 93306

== ENCOUNTER → 2024-10-08 10:55 | Outpatient (BNV) | payer MEDICARE, OTHER, SELFPAY | PROVIDERS: PCP Family Medicine; Visit Provider Internal Medicine Cardiovascular Disease | DX: I35.0 Nonrheumatic aortic (valve) stenosis (principal); I51.89 Other ill-defined heart diseases | CPT/HCPCS: 93306 ==